=== PATIENT | male | born 1975 | race Hispanic/Latino ===

== ENCOUNTER 2018-11-02 10:37 | Emergency (ER) | payer SELFPAY ==
[~2018-11-02] VITALS: Ht 177.8 cm; Wt 90.7 kg
== END 2018-11-02 10:50 | disposition home or self-care (01) ==
LOC: ED 10:37
DX: M25.561 Pain in right knee (principal); M25.562 Pain in left knee

== ENCOUNTER 2023-04-05 11:31 | Emergency (ER) | payer SELFPAY ==
[~2023-04-05] VITALS: Ht 177.8 cm; Wt 108.0 kg
[2023-04-05] MEDS ORDERED: VALACYCLOVIR1000 MG PO (12:00)
[2023-04-05 12:14] VITALS: BP 146/95
== END 2023-04-05 12:14 | disposition home or self-care (01) ==
LOC: ED 11:31
DX: B02.9 Zoster without complications (principal)
CPT/HCPCS: 99282